=== PATIENT | female | born 1995 | race Caucasian/White ===

== ENCOUNTER 2022-10-30 09:39 | Inpatient (IN) | payer OTHER, SELFPAY ==
[2022-10-30] MEDS ORDERED: Midazolam HCl 2 mg/2 ml Vial ONE ×2 (10:34→14:49)
[2022-10-30] MEDS ORDERED: fentaNYL 50 mcg/mL 1 mL Vial ONE ×6 (10:34→16:43)
[2022-10-30] MEDS ORDERED: Sodium Chloride 0.9% 100 ML ONE (10:35)
[2022-10-30] MEDS ORDERED: Piperacillin/Tazobactam 3.375 GM VIAL ONE (10:35)
[2022-10-30] MEDS ORDERED: Ketorolac Tromethamine 30 MG/ML VIAL ONE ×2 (10:35→14:56)
[2022-10-30] MEDS ORDERED: Scopolamine 1.5 mg/72 hour Patch ONE (10:35)
[2022-10-30] MEDS ORDERED: fentaNYL PF 100 MCG/2 ML SYRINGE ONE (14:49)
[2022-10-30] MEDS ORDERED: Lidocaine 1% PF 5 ML VIAL ONE (14:56)
[2022-10-30] MEDS ORDERED: PROPOFOL 200 MG/20 ML VIAL ONE (14:56)
[2022-10-30] MEDS ORDERED: Ondansetron PF 4 MG/2 ML Vial ONE (14:56)
[2022-10-30] MEDS ORDERED: Rocuronium Bromide 10 MG/ML (10ML VIAL) ONE (14:56)
[2022-10-30] MEDS ORDERED: Ondansetron HCl/PF 4 MG/2 ML Vial IVP PRN (15:01)
[2022-10-30] MEDS ORDERED: PACU-Morphine 4MG/ML VIAL SLOW IVP PRN (15:01)
[2022-10-30] MEDS ORDERED: HYDROmorphone 2 MG/ML VIAL SLOW IVP PRN (15:01)
[2022-10-30] MEDS ORDERED: Morphine Sulfate 2 MG/ML SYRINGE SLOW IVP PRN (15:01)
[2022-10-30] MEDS ORDERED: Promethazine HCl 25 MG/ML VIAL IM PRN (15:01)
[2022-10-30] MEDS ORDERED: Bupivacaine/Epinephrine 0.25% 30 ML VIAL ONE (15:26)
[2022-10-30] MEDS ORDERED: TETANUS, DIPHTHERIA TOX,ADULT (TDVAX) 0.5 ML VIAL IM ONE (16:14)
[2022-10-30] MEDS ORDERED: Ondansetron PF 4 MG/2 ML Vial IVP PRN (16:14)
[2022-10-30] MEDS ORDERED: hydrALAZINE 20 MG/ML VIAL SLOW IVP PRN (16:14)
[2022-10-30] MEDS ORDERED: Ondansetron ODT 4 MG TAB PO PRN (16:14)
[2022-10-30] MEDS ORDERED: Acetaminophen 500 MG TAB PO SCH (16:30)
[2022-10-30] MEDS ORDERED: HYDROmorphone 0.5 MG/0.5 ML SYRINGE ONE ×3 (16:49→17:18)
[2022-10-30] MEDS ORDERED: D5 1/2 NS w/20 mEq KCL 1,000 ML ONE (17:25)
[2022-10-30] MEDS: Ketorolac Tromethamine 30 MG/ML VIAL IVP SCH ×2 (18:33→22:26)
[2022-10-30] MEDS: D5 1/2 NS w/20 mEq KCL 1,000 ML IV SCH (18:33)
[2022-10-30] MEDS: Acetaminophen 500 MG TAB PO SCH ×2 (20:35→20:52)
[2022-10-30] MEDS: Famotidine 20 MG TAB PO SCH (20:53)
[2022-10-30] MEDS: Piperacillin/Tazobactam 4.5 GM in Sodium Chloride 0.9% 100 ML IVPB SCH (20:53)
[2022-10-30] MEDS: traMADol HCl 50 MG TAB PO PRN (20:53)
[2022-10-30 21:03] VITALS: BMI 27.3
[2022-10-30] MEDS: Morphine 4 MG/ML VIAL SLOW IVP PRN (23:51)
[2022-10-31] MEDS: D5 1/2 NS w/20 mEq KCL 1,000 ML IV SCH ×4 (02:07→21:15)
[2022-10-31] MEDS: Piperacillin/Tazobactam 4.5 GM in Sodium Chloride 0.9% 100 ML IVPB SCH ×3 (05:59→21:16)
[2022-10-31] MEDS: Ketorolac Tromethamine 30 MG/ML VIAL IVP SCH ×4 (05:59→23:46)
[2022-10-31 08:06] LABS: #Eosinphils 0.1 thou/uL (0.0-0.7); #Monocytes 1.1 thou/uL (0.11-0.59); #Neutrophils 5.7 thou/uL (1.40-6.50); %Basophils 0.2 % (0.0-1.0); %Eosinophils 0.7 % (0.0-10.0); %Lymphocytes 17.4 % (21.0-51.0); %Monocytes 12.7 % (0.0-10.0); %Neutrophils 68.2 % (42.0-75.0); Hemoglobin 10.5 g/dL (12.0-16.0); Mean Corpuscular Hemoglobin 30.5 pg (27.0-31.0); Mean Corpuscular Volume 92.4 fl (78.0-98.0); Mean Platelet Volume 10.5 fL (7.4-10.4); Platelet Count 172 10x3/uL (130-400); RBC Distribution Width 12.6 % (11.5-14.5); Red Blood Cell (RBC) Count 3.44 mill/uL (4.20-5.40); White Blood Cell (WBC) Count 8.4 10x3/uL (4.8-10.8)
[2022-10-31 08:32] LABS: Anion Gap 10 mmol/L (10-20); BUN (Urea Nitrogen) 7 mg/dL (7.0-18.7); Calc. Creatinine Clearance 114 mL/min (70-130); Calcium 7.6 mg/dL (7.8-10.44); Carbon Dioxide 21 mmol/L (22-29); Chloride 108 mmol/L (98-107); Estimated GFR 86; Glucose 107 mg/dL (70-105); Potassium 3.8 mmol/L (3.5-5.1); Sodium 135 mmol/L (136-145)
[2022-10-31] MEDS: Acetaminophen 500 MG TAB PO SCH ×4 (09:33→21:16)
[2022-10-31] MEDS: Famotidine 20 MG TAB PO SCH ×2 (09:34→21:16)
[2022-11-01] MEDS: Morphine 4 MG/ML VIAL SLOW IVP PRN (02:26)
[2022-11-01] MEDS: D5 1/2 NS w/20 mEq KCL 1,000 ML IV SCH ×3 (04:51→23:32)
[2022-11-01] MEDS: Piperacillin/Tazobactam 4.5 GM in Sodium Chloride 0.9% 100 ML IVPB SCH ×3 (05:29→21:32)
[2022-11-01] MEDS: Ketorolac Tromethamine 30 MG/ML VIAL IVP SCH (05:30)
[2022-11-01 06:33] LABS: #Eosinphils 0.1 thou/uL (0.0-0.7); #Monocytes 0.7 thou/uL (0.11-0.59); #Neutrophils 5.5 thou/uL (1.40-6.50); %Basophils 0.1 % (0.0-1.0); %Eosinophils 1.3 % (0.0-10.0); %Lymphocytes 17.8 % (21.0-51.0); %Monocytes 8.5 % (0.0-10.0); %Neutrophils 71.7 % (42.0-75.0); Mean Corpuscular HGB CONC 33.1 g/dL (32.0-36.0); Mean Corpuscular Hemoglobin 30.2 pg (27.0-31.0); Mean Corpuscular Volume 91.2 fl (78.0-98.0); Mean Platelet Volume 10.7 fL (7.4-10.4); Platelet Count 171 10x3/uL (130-400); RBC Distribution Width 12.4 % (11.5-14.5); Red Blood Cell (RBC) Count 3.31 mill/uL (4.20-5.40); White Blood Cell (WBC) Count 7.7 10x3/uL (4.8-10.8)
[2022-11-01] MEDS ORDERED: Ibuprofen 600 MG TAB PO PRN (08:00)
[2022-11-01] MEDS: traMADol HCl 50 MG TAB PO PRN ×3 (08:55→22:43)
[2022-11-01] MEDS: Famotidine 20 MG TAB PO SCH ×2 (08:55→21:25)
[2022-11-01] MEDS: Acetaminophen 500 MG TAB PO SCH ×4 (08:55→21:25)
[2022-11-01] MEDS ORDERED: Morphine 2 MG/ML VIAL SLOW IVP PRN (21:10)
[2022-11-01] MEDS ORDERED: Scopolamine 1.5 mg/72 hour Patch TD SCH (22:00)
[2022-11-02] MEDS: Piperacillin/Tazobactam 4.5 GM in Sodium Chloride 0.9% 100 ML IVPB SCH (06:23)
[2022-11-02] MEDS: traMADol HCl 50 MG TAB PO PRN (06:24)
[2022-11-02] MEDS: D5 1/2 NS w/20 mEq KCL 1,000 ML IV SCH (06:30)
[2022-11-02 08:12] VITALS: TEMP 97.9
[2022-11-02] MEDS: Acetaminophen 500 MG TAB PO SCH (09:00)
[2022-11-02] MEDS: Famotidine 20 MG TAB PO SCH (09:00)
[2022-11-02] MEDS ORDERED: Amoxicillin/Potassium Clav 875 MG TAB PO SCH ×2 (11:45→21:00)
[2022-11-02 12:31] VITALS: BP 110/70
[2022-11-02] MEDS ORDERED: Acetaminophen 325 MG TAB PO SCH (15:00)
[2022-11-02] MEDS ORDERED: Acetaminophen/Codeine 30-300mg Tablet PO SCH (15:00)
[2022-11-03] MEDS ORDERED: Saccharomyces boulardii 250 MG CAP PO SCH (09:00)
== END 2022-11-02 13:49 | disposition home or self-care (01) | DRG 340 ==
LOC: SDC 09:39 → SJJU 16:14
PROVIDERS: ADMIT Specialist; ATTEND Specialist
PROC: 0DTJ4ZZ Resection of Appendix, Percutaneous Endoscopic Approach (ICD-10-PCS; principal; 2022-10-30)
DX: K35.32 Acute appendicitis with perforation, localized peritonitis, and gangrene, without abscess (principal); R63.0 Anorexia; I95.9 Hypotension, unspecified; Z68.27 Body mass index [BMI] 27.0-27.9, adult
CPT/HCPCS: 36415; 80048; 85025; 88304; A4649; J1170; J1650; J1885; J2250; J2270; J2405; J2543; J2704; J3010; J3480; J3490